=== PATIENT | male | born 1950 | race Caucasian/White ===

== ENCOUNTER 2017-03-31 06:03 | Inpatient (IN) | payer BC, MEDICARE ==
[~2017-03-31 06:03] MED LIST: Buffered Lidocaine 0.9% SYRIN* 5 ML/SYR SYRINGE INTRADERM ONE; Buffered Lidocaine 0.9% SYRIN* 5 ML/SYR SYRINGE ONE; Dexamethasone IV* 4 MG/ML 1 ML (4 MG) IV SLOW PU ONE; Dexamethasone IV* 4 MG/ML 1 ML (4 MG) ONE; Famotidine IV* 10 MG/ML 2 ML (20 mg) IV ONE; Famotidine IV* 10 MG/ML 2 ML (20 mg) ONE; ceFAZolin 2 GM PREMIX (*) 2 GM/50 ML BAG IVPB ONE
[2017-03-31] MEDS ORDERED: Morphine PF AMP (0.5MG/ML)* 5 MG/10 ML AMP ONE (07:20)
[2017-03-31] MEDS ORDERED: KETAMINE HCL* 50 MG/ML 10 ML VIAL ONE (07:20)
[2017-03-31] MEDS ORDERED: Midazolam* 1 MG/ML 5 ML VIAL (5 MG) ONE ×2 (07:20→08:59)
[2017-03-31] MEDS ORDERED: Propofol* 10 MG/ML 20 ML BTL IV PUSH ONE ×2 (07:21→11:00)
[2017-03-31] MEDS ORDERED: Ondansetron INJ* 2 MG/ML VIAL ONE (07:21)
[2017-03-31] MEDS ORDERED: Bupivacaine 0.5% SDV PF* 30 ML VIAL ONE (07:21)
[2017-03-31] MEDS ORDERED: Phenylephrine INJ* 10 MG/ML 1 ML VIAL (10 MG) ONE (07:21)
[2017-03-31] MEDS ORDERED: Nalbuphine* 20 MG/ML 1 ML VIAL IV PRN ×2 (08:57)
[2017-03-31] MEDS ORDERED: DiMENhydriNATE IV* 50 MG/ML VIAL IV PUSH PRN (08:57)
[2017-03-31] MEDS ORDERED: Ondansetron INJ* 2 MG/ML VIAL IV PRN (08:57)
[2017-03-31] MEDS ORDERED: Naloxone* 0.4 MG/ML 1 ML VIAL IV PRN (08:57)
[2017-03-31] MEDS ORDERED: oxyCODONE/Acetamin 5/325 MG* TAB PO PRN ×2 (08:57)
[2017-03-31] MEDS ORDERED: Scopolamine 1.5 mg* PATCH TRANSDERM SCH (09:00)
[2017-03-31] MEDS ORDERED: Ropivacaine* 300 MG in NS 0.9% 250 ML* 240 ML EPIDURAL SCH (10:00)
[2017-03-31] MEDS ORDERED: Bisacodyl SUPP* 10 MG SUPP PR PRN (11:30)
[2017-03-31] MEDS ORDERED: Acetaminophen TAB* 325 MG PO PRN (11:30)
--- NOTE | 2017-03-31 12:17 | RAD ---
INDICATION: Status post right TKA COMPARISON: Preoperative radiograph February 23, 2017 TECHNIQUE: 2 view radiograph of the right knee. FINDINGS: There has been interval placement of a right knee prosthesis in anatomic alignment. There is no evidence of periprostatic fracture or loosening. Surgical skin rosalina are seen overlying the anterior knee. IMPRESSION: Anatomic alignment of recently placed right knee prosthesis.
[2017-03-31] MEDS ORDERED: Nalbuphine* 20 MG/ML 1 ML VIAL ONE (12:48)
--- NOTE | 2017-03-31 15:52 | CONSULT ---
Subjective Date of Service: 03/31/17 Interval History: 67 yo M with hx of AFib with intra-atrial thrombus on coumadin, depression, JYOTI , cardiomyopathy (resolved with normalization of EF), RLS seen in PACU after R TKA. Patient has no complaints at this time, denies pain. Has stopped coumadin 5 days prior to surgery and was using Lovenox SQ. Family History: Findings - S - cervical ca Social History: Findings - Former smoked, 1/4 PPD x 15 years, quit 20 years ago , no ETOH, drug use Past Medical History: Findings - AFib, hx intra-atrial thrombus, depression, resolved cardiomyopathy, RLS, JYOTI Review of Systems - Measurements Intake and Output: Intake and Output Last 24 Hours 03/29/17 03/30/17 03/31/17 04/01/17 06:59 06:59 06:59 06:59 Intake Total 3400 Output Total 425 Balance 2975 Weight 144.061 kg Intake: IV Fluids 3400 LR 3400 Output: Doherty 425 Other: Estimated Blood Loss <200 Comment - Review of Systems Constitutional Symptoms: Negative: Weight Gain, Weight Loss Dermatology: Positive: Normal HEENT: Positive: Normal Eyes: Positive: Normal Thyroid: Positive: Normal Pulmonary: Positive: Normal Cardiology: Positive: Normal Gastroenterology: Positive: Normal Endocrinology: Positive: Normal Neurology: Positive: Normal Psychiatry: Positive: Normal Objective Active Medications: Acetaminophen (Tylenol Tab*) 650 mg PO Q4H PRN PRN Reason: PAIN OR TEMPERATURE Amiodarone HCl (Cordarone Tab*) 200 mg PO QAM [facility] Amlodipine Besylate (Norvasc Tab*) 10 mg PO QAM [facility] Bisacodyl (Dulcolax Supp*) 10 mg [place] DAILY PRN PRN Reason: constipation Dimenhydrinate (Dramamine Iv*) 25 mg IV PUSH ONCE PRN PRN Reason: NAUSEA/VOMITING Stop: 04/01/17 06:00 Diphenhydramine HCl (Benadryl Iv*) 25 mg IV Q6H PRN PRN Reason: itching or insomnia Docusate Sodium (Colace Cap*) 100 mg PO BID [facility] Enoxaparin Sodium (Lovenox(*)) 100 mg SUBCUT BID [facility] Ropivacaine 300 mg/ Sodium (Chloride) 300 mls @ 0 mls/hr EPIDURAL Q24H [facility]; Per Protocol PRN Reason: Protocol Stop: 04/01/17 06:00 Last Admin: 03/31/17 12:10 Dose: 10 mls/hr Lactated Ringer's (Lactated Ringers 1000 Ml Bag*) 1,000 mls @ 2,000 mls/hr IV ONCE PRN PRN Reason: FOR SBP < 90 Stop: 04/01/17 06:00 Cefazolin Sodium 1 gm/ Sodium (Chloride) 50 mls @ 200 mls/hr IVPB Q8H [facility] Stop: 04/01/17 08:14 Lactated Ringer's (Lactated Ringers 1000 Ml Bag*) 1,000 mls @ 100 mls/hr IV PER RATE [facility] Lactulose (Lactulose*) 30 ml PO Q6H PRN PRN Reason: constipation Morphine Sulfate (Morphine Inj (Syringe)*) 2 mg IV Q2H PRN PRN Reason: PAIN - UNCONTROLLED Multivitamins (Theragran Tab*) 1 tab PO DAILY [facility] Nalbuphine HCl (Nubain*) 5 mg IV Q6H PRN PRN Reason: NAUSEA/VOMITING Stop: 04/01/17 06:00 Nalbuphine HCl (Nubain*) 5 mg IV Q6H PRN PRN Reason: PRURITIS Stop: 04/01/17 06:00 Last Admin: 03/31/17 12:50 Dose: 5 mg Naloxone HCl (Narcan*) 0.08 mg IV Q2M PRN PRN Reason: respiratory depression Stop: 04/01/17 02:00 Ondansetron HCl (Zofran Inj*) 4 mg IV Q6H PRN PRN Reason: NAUSEA/VOMITING Stop: 04/01/17 06:00 Ondansetron HCl (Zofran Inj*) 4 mg IV Q6H PRN PRN Reason: nausea Oxybutynin Chloride (Ditropan Xl Tab*) 5 mg PO BID [facility] Oxycodone HCl (Roxycodone Tab*) 10 mg PO Q4H PRN PRN Reason: PAIN - SEVERE Oxycodone/Acetaminophen (Percocet 5/325 Tab*) 1 tab PO Q3H PRN PRN Reason: moderate pain Stop: 04/01/17 06:00 Oxycodone/Acetaminophen (Percocet 5/325 Tab*) 2 tab PO Q4H PRN PRN Reason: moderate pain Stop: 04/01/17 06:00 Oxycodone/Acetaminophen (Percocet 5/325 Tab*) 1 tab PO Q3H PRN PRN Reason: PAIN - MODERATE Oxycodone/Acetaminophen (Percocet 5/325 Tab*) 2 tab PO Q3H PRN PRN Reason: PAIN - MODERATE TO SEVERE Pharmacy Profile Note (Scopolomine Patch Remove*) 1 note PATCH OFF .AFTER 72 HOURS ONE Stop: 04/03/17 09:06 Scopolamine (Transderm-Scop 1.5 Mg Patch*) 1 patch TRANSDERM Q72H [facility] Last Admin: 03/31/17 14:31 Dose: Not Given Sertraline HCl (Zoloft*) 100 mg PO QAM [facility] Spironolactone (Aldactone Tab*) 25 mg PO QAM [facility] Warfarin Sodium (Coumadin Tab(*)) 5 mg PO ONCE@1700 ONE PRN Reason: Protocol Stop: 04/01/17 17:01 Vital Signs 03/31/17 03/31/17 03/31/17 06:07 11:30 11:35 Temperature 97.0 F 98.2 F Pulse Rate 80 72 80 Respiratory 16 18 16 Rate Blood Pressure 146/82 106/85 129/77 (mmHg) O2 Sat by Pulse 97 96 93 Oximetry 03/31/17 03/31/17 03/31/17 13:45 14:04 14:36 Temperature 97.5 F Pulse Rate 75 96 Respiratory 16 16 16 Rate Blood Pressure 115/71 100/87 (mmHg) O2 Sat by Pulse 96 97 Oximetry Oxygen Devices in Use Now: Nasal Cannula - 3L Appearance: Elderly, M, laying in bed in NAD Eyes: No Scleral Icterus Ears/Nose/Mouth/Throat: - - Dry MM Neck: NL Appearance and Movements; NL JVP Respiratory: Symmetrical Chest Expansion and Respiratory Effort, - - slight rales in B/L bases Cardiovascular: NL Sounds; No Murmurs; No JVD, - - IRIR Abdominal: NL Sounds; No Tenderness; No Distention Lymphatic: No Cervical Adenopathy Extremities: - - RLE with SITA wrap in place Skin: No Rash or Ulcers Neurological: Alert and Oriented x 3 Lines/Tubes/Other Access: Clean, Dry and Intact Doherty Assessment/Plan - Billing 67 yo M with hx of AFib, intra-atrial thrombus on coumadin, HTN, depression, JYOTI on CPAP, cardiomyopathy (resolved with normalization of EF), RLS 1) R TKA - management as per ortho - coumadin/lovenox ordered to start/resume 04/01 PM 2) AFib - AC resuming tomorrow as above - continue Amiodarone - patient also on Digoxin, will order this to resume 3) HTN - BPs soft post-op - hold home anti-HTN meds (Amlodipine, Losartan/HCTZ), unclear if patient is on Spironolactone at home 4) Depression - continue Zoloft 5) JYOTI - CPAP qhs 6) DVT PPx - SCDs for now Thank you for this consult. Will continue to follow.
[2017-03-31] MEDS: ceFAZolin 1 GM VIAL(*) 1 GM in NS 0.9% 50 ML* 50 ML IVPB SCH ×2 (15:53→23:32)
[2017-03-31] MEDS: Digoxin TAB* 0.125 MG PO SCH (17:21)
[2017-03-31] MEDS: Docusate CAP* 100 MG PO SCH (21:33)
[2017-03-31] MEDS: Oxybutynin XL TAB* 5 MG PO SCH (21:33)
[2017-04-01] MEDS ORDERED: diPHENhydraMINE IV* 50 MG/ML 1 ml VIAL (BENADRYL) IV PRN (06:00)
[2017-04-01] MEDS ORDERED: oxyCODONE TAB* 5 MG TAB PO PRN (06:00)
[2017-04-01] MEDS ORDERED: Morphine INJ* 2 MG/ML 1 ML SYRINGE (TWO MG - NEW SYRINGE VERSION) IV PRN (06:00)
[2017-04-01] MEDS ORDERED: Ondansetron INJ* 2 MG/ML VIAL IV PRN (06:00)
--- NOTE | 2017-04-01 08:16 | OP ---
DATE OF OPERATION: 03/31/17 - ROOM #333 DATE OF : 46 SURGEON: Paul Lara MD ASSISTANTS: WAI Saba; Mariam ANESTHESIOLOGIST: Silvino Buchanan MD ANESTHESIA: Epidural anesthesia, general sedation. PRE-OP DIAGNOSIS: Right knee osteoarthritis. POST-OP DIAGNOSIS: Right knee osteoarthritis. OPERATIVE PROCEDURE: Right total knee arthroplasty. ANTIBIOTICS: Ancef 3 g IV. IV FLUIDS: 3100 cc crystalloid. TOURNIQUET TIME: 136 minutes at 300 mmHg. COMPLICATIONS: None. EBL: Less than 250 cc. SPECIMEN: Bone from bone cuts. IMPLANTS: DePuy Suhail and Suhail Attune total knee arthroplasty; cruciate retaining femur size 8, right; tibial base plate, fixed bearing, size 7; patella medialized dome, 38 mm, all cemented; a tibial insert 7-mm polyethylene. Simplex P bone cement. INDICATIONS FOR PROCEDURE: The patient is a 67-year-old man with a long history of pain and osteoarthritis of the right knee, insufficiently responsive to nonoperative management over many years as detailed in my clinic note and history and physical. The patient's x-rays demonstrated [id number] medial compartment joint space narrowing as well as moderate patello-femoral and mild lateral compartment joint space narrowing and tricompartmental osteophytes. I measured 2 degrees of varus in the coronal plane at the knee. The patient has atrial fibrillation and is on chronic Coumadin anticoagulation. He is a former smoker, 2 to 3 cigarettes per day x10 years, but no recent use. His BMI is elevated, measured at his first clinic visit as 40.9. The patient opted for surgery. We discussed risks and potential complications. These include bleeding, infection, nerve or blood vessel injury, knee pain, hardware failure, knee stiffness, implant failure, blood clot. We discussed the patient's higher rate of failure of implants given his high BMI of 40.9. The patient was aware and we discussed that at both clinic visits, but the patient has had trouble losing weight because of this significant pain in his right knee. DESCRIPTION OF PROCEDURE: Preoperative written consent was obtained. Operative extremity was marked in preoperative holding. The knee was well shaved. It should be noted that the patient stopped his Coumadin anticoagulation 5 days preoperatively and was bridged with Lovenox with his final dose being 24 hours prior to surgery. This was as dictated by his building surveyor. I agreed with that regimen. The patient was brought back to the operating room and placed on the operating room table. Dr. Buchanan performed an epidural anesthetic, catheter placement. The patient was placed supine on operating room table. Well sedated. A lateral post was placed, attached to the bed. I positioned the lower extremity, so that the Ms Johnson knee positioning system would work well. I performed a range of motion check and I measured 2 to 120 degrees of flexion of the right knee. The right lower extremity was prepped with chlorhexidine to the foot and then ChloraPrep from foot to thigh. A tourniquet had been placed around the proximal thigh. The right lower extremity was then draped. The [facility] knee positioner was put into place. I then covered all the skin. A surgical time- out was performed. Esmarch was applied and the tourniquet was elevated to 300 mmHg. Anterior midline longitudinal skin incision was made from 4 fingerbreadths proximal to proximal pole of patella to the distal end of the tibial tubercle. Blades were changed. I continued my cuts through the subcutaneous tissue down to the patella. I cut subcutaneous tissue proximal with a curved Johnson scissors. With feathering strokes, I identified the patella and medial parapatellar retinaculum as well as the patella distally. I next marked my medial parapatellar arthrotomy with a marking pen. With the knee in 70 degrees of flexion, I then performed my medial parapatellar arthrotomy. I continued that down distally through the anterior horn of the medial meniscus. I extended the knee. Using Bovie electrocautery, I released capsule off of the anterior aspect of the medial tibial plateau and then the lateral tibial plateau. I performed a release medially with Bovie electrocautery followed by a quarter- inch curved osteotome. I next removed much but not all of the fat deep to the patellar tendon with a #10 blade. I removed osteophytes from the patella with a rongeur. I released soft tissue circumferentially from the patella with Bovie electrocautery. I also used a Schnitt and Bovie electrocautery to release some lateral patellofemoral ligament. The patella then nicely everted and I flexed the knee and everted the patella. I cut the ACL with a Bovie electrocautery and removed its stumps with a rongeur. I removed some osteophytes from the femur with a rongeur. There were significant osteophytes in the intercondylar notch and at the medial and lateral borders of the femur. Retractors were placed. I next drilled into the femoral canal using appropriate landmarks. I irrigated and sucked out the contents of the femoral canal. I next placed my distal femoral cutting guide. It was set to 5 degrees and 9 mm. I placed pins and then made my distal femoral cut. Removed instrumentation. I next placed my Attune distal femoral sizing guide and pinned it into place with 3 degrees of external rotation with regards to the posterior condyles. I next sized the femur to a size 8. I placed the 4-in-1 cutting block and made my anterior femoral cut. I liked its position, so I then placed my cross pins and made my posterior cut, then my anterior chamfer and my posterior chamfer cuts. Removed the instruments. I next used a file to file the central part of the anterior chamfer cut down per the Attune system. I next placed my external tibial cutting guide on the tibia. I had marked with a marking pen the mid point of the talus, the tibial crest anteriorly, and the second toe. The medial tibia had slightly more wear than the lateral tibia. Therefore, I used the medial side as my low side. I set my resection to remove 4 mm off the medial tibial plateau side. I liked the depth of this cut. I set my posterior slope to 7 degrees, which nicely matched the ambler tibial plateau. Pins were placed and a tibial cut was made. I liked the tibial cut. I next placed laminar spreaders and removed the medial and lateral meniscus. I next hyperflexed the knee and used a curved osteotome to remove osteophytes from the posterior femur. With my bony resections done, posterior osteophytes removed, and meniscus removed, I next placed my dog bone spacers. These showed equivalence of flexion and extension gaps as well as good soft tissue balancing. It seemed to me that my insert would likely be either 6 or 7 mm in size. I next placed my trial femur component, size 8 and drilled through it. I next, using the ____ technique, marked where the tibial component should be positioned on the tibia. I then removed all this instrumentation. I next placed retractors and externally rotated the tibia and sized the tibia. I first removed some osteophytes off the medial aspect of the medial tibial plateau. I sized the tibia to a 7. I next pinned the guide and then drilled and punched the tibia. Removed instruments. I extended knee. I measured the depths of the patella to be 25 mm in depth. Using eyeball technique, I removed the undersurface of the patella with an oscillating saw to a depth remaining of 14 mm. I next sized the patella to 38 mm. Through a guide, I placed 3 drill holes. I placed trial components of the femur, tibia, and patella and I liked my trial implants, I liked my bony cuts, and my soft tissue tension. At several points during the case prior, I placed a long guidewire down distally to ensure that the varus-valgus, coronal plane orientation of my tibial cut was true. Irrigation. I plugged the femoral canal with part of the bone that I removed from the anterior chamfer cut. Cement was mixed. Implants were opened. I placed the tibial implant with cement. Then, I placed the femoral implant with cement. I placed a trial 6-mm insert. I then placed the patellar implant. Cement was allowed to dry. I next trialed with a 6-mm insert and a 7-mm insert. I preferred the 7-mm insert, and so I opened the final polyethylene insert and placed it. Irrigation. No excess cement was visible. The tourniquet was next dropped. Besides 1 distal superficial clear bleeder, there was just some general ooze. Some compression and several minutes later, the oozing had stopped. Irrigation. Closure of the parapatellar arthrotomy was performed with [id number] stitches using Vicryl 0 suture. I also placed 2 stitches with an Ethibond 0 suture. Closure of the subcutaneous tissue with buried simple stitches using Vicryl 2-0 suture. Closure of the skin with rosalina. Xeroform, 4x4's, ABDs, sterile Webril. Blair bandage from foot to proximal thigh. Cooling unit applied to the knee. The patient was lightened from sedation and transferred to the PACU. DISPOSITION: The patient will be admitted postoperatively for medical management, pain control, and physical therapy. On postoperative day 1 in the morning, the patient will start physical therapy, weightbearing as tolerated for range of motion, strengthening, and walking. Anesthesia with epidural was still in place and will be removed in the evening or the morning following surgery. Pain control with oral and IV narcotics. The patient will restart Coumadin on postoperative day 1 as well as a dose of bridging Lovenox on postoperative day 1. The patient had been on Lovenox 100 mg subcu b.i.d. preoperatively and we will return him to that as a bridge. We will find out his exact Coumadin dosing most recently as it has varied in the past. He will receive Ancef 1 g q.8 hours x24 hours postoperatively. I will see the patient in the office approximately 14 days postoperatively to have a wound check, x- rays, and rosalina removed. The patient had x-rays in the PACU that showed excellent bone cuts and excellent placement of hardware. [id number]/[facility] #: [id number] [facility]ITAL[facility]arshall
[2017-04-01] MEDS: Docusate CAP* 100 MG PO SCH ×2 (08:21→20:31)
[2017-04-01] MEDS: ceFAZolin 1 GM VIAL(*) 1 GM in NS 0.9% 50 ML* 50 ML IVPB SCH (08:21)
[2017-04-01] MEDS: Vitamin THERAPEUTIC TAB PO SCH (08:21)
[2017-04-01] MEDS: Oxybutynin XL TAB* 5 MG PO SCH ×2 (08:22→20:31)
[2017-04-01] MEDS: oxyCODONE/Acetamin 5/325 MG* TAB PO PRN ×4 (08:22→20:44)
[2017-04-01] MEDS: Amiodarone TAB* 200 MG PO SCH (08:22)
[2017-04-01] MEDS: Sertraline* 100 MG TAB PO SCH (08:22)
[2017-04-01 08:36] LABS: Hematocrit 33 % (42-52); Hemoglobin 11.5 g/dl (14.0-18.0)
[2017-04-01] MEDS ORDERED: Influenza VAC *QUAD* 2017-18* 0.5 ML SYRINGE IM ONE (09:00)
[2017-04-01] MEDS ORDERED: Spironolactone TAB* 25 MG PO SCH (09:00)
[2017-04-01] MEDS ORDERED: amLODIPine TAB* 5 MG PO SCH (09:00)
[2017-04-01 09:13] LABS: BUN/Creatinine Ratio 21.2 (8-20); Calcium 8.7 mg/dL (8.6-10.3); EGFR African American 69.2 (>60); EGFR Non-African American 53.8 (>60); Potassium 4.1 mmol/L (3.5-5.0)
--- NOTE | 2017-04-01 13:28 | PN ---
Progress Note - Progress Note Date of Service: 04/01/17 SOAP: Subjective: []Patient is seen at bedside. Pain is tolerable. Working with OT in room at bedside. Denies SOB, CP, or dizziness. Objective: [] Vital Signs Temp 98.6 F 04/01/17 07:48 Pulse 82 04/01/17 07:48 Resp 16 04/01/17 12:47 BP 109/61 04/01/17 07:48 Pulse Ox 92 04/01/17 07:48 Intake & Output 03/31/17 04/01/17 04/01/17 18:59 06:59 18:59 Intake Total 3730 2816 225 Output Total 425 1425 Balance 3305 1391 225 Intake: IV Fluids 3400 1113 LR 3400 1113 IVPB 113 ABX - CEFAZOLIN 113 Oral 330 1590 225 Output: Doherty 425 1425 Other: Estimated Blood Loss <200 Comment Laboratory Results - last 24 hr 04/01/17 04/01/17 07:40 07:40 Hgb 11.5 L Hct 33 L Sodium 134 Potassium 4.1 Chloride 105 Carbon Dioxide 25 Anion Gap 4 BUN 28 H Creatinine 1.32 H Est GFR ( Amer) 69.2 Est GFR (Non-Af Amer) 53.8 BUN/Creatinine Ratio 21.2 H Glucose 128 H Calcium 8.7 right knee dressing with scant bloody drainage calf NT +DF/PF right ankle sensation and circulation intact distally Assessment: []s/p Right total knee arthroplasty POD #1 Plan: []PT/OT WBAT RLE Lovenox 100mg q12 starting tonight 5 mg Coumadin daily until INR 2-3, then d/c Lovenox
[2017-04-01] MEDS ORDERED: Warfarin TAB(*) 5 MG PO ONE ×2 (17:00)
[2017-04-01] MEDS: Digoxin TAB* 0.125 MG PO SCH (17:44)
--- NOTE | 2017-04-01 18:25 | CONSULT ---
Subjective Date of Service: 04/01/17 Interval History: s/p surgery. Pain well controlled. lovenox and coumadin starting. Pt can't remember when the LV thrombus was or what his dose of warfarin is. Family History: Findings - S - cervical ca Social History: Findings - Former smoked, 1/4 PPD x 15 years, quit 20 years ago , no ETOH, drug use Past Medical History: Findings - AFib, hx intra-atrial thrombus, depression, resolved cardiomyopathy, RLS, JYOTI Review of Systems - Measurements Intake and Output: Intake and Output Last 24 Hours 03/30/17 03/31/17 04/01/17 04/02/17 06:59 06:59 06:59 06:59 Intake Total 6546 1192 Output Total 1850 200 Balance 4696 992 Weight 144.061 kg Intake: IV Fluids 4513 742 ABX - CEFAZOLIN 55 LR 4513 687 IVPB 113 ABX - CEFAZOLIN 113 Oral 1920 450 Output: Urine 200 Doherty 1850 Other: Estimated Blood Loss <200 Comment - Review of Systems Dermatology: Positive: Normal HEENT: Positive: Normal Eyes: Positive: Normal Thyroid: Positive: Normal Pulmonary: Positive: Normal Cardiology: Positive: Normal Gastroenterology: Positive: Normal Musculoskeletal: Positive: Joint Pain Endocrinology: Positive: Normal Neurology: Positive: Normal Psychiatry: Positive: Normal Objective Active Medications: Acetaminophen (Tylenol Tab*) 650 mg PO Q4H PRN PRN Reason: PAIN OR TEMPERATURE Amiodarone HCl (Cordarone Tab*) 200 mg PO QAM [facility] Last Admin: 04/01/17 08:22 Dose: 200 mg Bisacodyl (Dulcolax Supp*) 10 mg [place] DAILY PRN PRN Reason: constipation Digoxin (Lanoxin Tab*) 0.125 mg PO 1700 [facility] Last Admin: 04/01/17 17:44 Dose: 0.125 mg Diphenhydramine HCl (Benadryl Iv*) 25 mg IV Q6H PRN PRN Reason: itching or insomnia Docusate Sodium (Colace Cap*) 100 mg PO BID [facility] Last Admin: 04/01/17 08:21 Dose: 100 mg Enoxaparin Sodium (Lovenox(*)) 100 mg SUBCUT BID [facility] Lactated Ringer's (Lactated Ringers 1000 Ml Bag*) 1,000 mls @ 100 mls/hr IV PER RATE [facility] Last Admin: 03/31/17 23:38 Dose: 100 mls/hr Lactulose (Lactulose*) 30 ml PO Q6H PRN PRN Reason: constipation Morphine Sulfate (Morphine Inj (Syringe)*) 2 mg IV Q2H PRN PRN Reason: PAIN - UNCONTROLLED Multivitamins (Theragran Tab*) 1 tab PO DAILY [facility] Last Admin: 04/01/17 08:21 Dose: 1 tab Ondansetron HCl (Zofran Inj*) 4 mg IV Q6H PRN PRN Reason: nausea Oxybutynin Chloride (Ditropan Xl Tab*) 5 mg PO BID [facility] Last Admin: 04/01/17 08:22 Dose: 5 mg Oxycodone HCl (Roxycodone Tab*) 10 mg PO Q4H PRN PRN Reason: PAIN - SEVERE Oxycodone/Acetaminophen (Percocet 5/325 Tab*) 1 tab PO Q3H PRN PRN Reason: PAIN - MODERATE Last Admin: 04/01/17 17:44 Dose: 1 tab Oxycodone/Acetaminophen (Percocet 5/325 Tab*) 2 tab PO Q3H PRN PRN Reason: PAIN - MODERATE TO SEVERE Last Admin: 04/01/17 12:47 Dose: 2 tab Pharmacy Profile Note (Scopolomine Patch Remove*) 1 note PATCH OFF .AFTER 72 HOURS ONE Stop: 04/03/17 09:06 Scopolamine (Transderm-Scop 1.5 Mg Patch*) 1 patch TRANSDERM Q72H [facility] Last Admin: 03/31/17 14:31 Dose: Not Given Sertraline HCl (Zoloft*) 100 mg PO QAM [facility] Last Admin: 04/01/17 08:22 Dose: 100 mg Vital Signs 03/31/17 03/31/17 03/31/17 19:00 19:33 19:58 Temperature 98.9 F Pulse Rate 90 Respiratory 16 18 14 Rate Blood Pressure 101/49 (mmHg) O2 Sat by Pulse 94 Oximetry 03/31/17 04/01/17 04/01/17 23:28 00:00 03:28 Temperature 99.1 F 97.3 F Pulse Rate 88 72 Respiratory 18 16 Rate Blood Pressure 120/55 100/52 (mmHg) O2 Sat by Pulse 93 93 94 Oximetry 04/01/17 04/01/17 04/01/17 04:30 05:26 05:48 Temperature Pulse Rate Respiratory 18 18 Rate Blood Pressure (mmHg) O2 Sat by Pulse 93 Oximetry 04/01/17 04/01/17 04/01/17 06:30 07:48 07:56 Temperature 98.6 F Pulse Rate 82 Respiratory 16 16 16 Rate Blood Pressure 109/61 (mmHg) O2 Sat by Pulse 92 Oximetry 04/01/17 04/01/17 04/01/17 08:22 10:22 11:33 Temperature 98.6 F Pulse Rate 92 Respiratory 16 16 17 Rate Blood Pressure 123/67 (mmHg) O2 Sat by Pulse 91 Oximetry 04/01/17 04/01/17 04/01/17 12:47 14:47 15:49 Temperature 97.7 F Pulse Rate 79 Respiratory 16 16 18 Rate Blood Pressure 128/65 (mmHg) O2 Sat by Pulse 92 Oximetry 04/01/17 17:44 Temperature Pulse Rate 72 Respiratory 16 Rate Blood Pressure (mmHg) O2 Sat by Pulse Oximetry Oxygen Devices in Use Now: Nasal Cannula - 3L Appearance: NAD Eyes: No Scleral Icterus, PERRLA Ears/Nose/Mouth/Throat: NL Teeth, Lips, Gums, Mucous Membranes Moist Neck: NL Appearance and Movements; NL JVP, Trachea Midline Respiratory: Symmetrical Chest Expansion and Respiratory Effort, Clear to Auscultation Cardiovascular: NL Sounds; No Murmurs; No JVD, RRR Abdominal: NL Sounds; No Tenderness; No Distention, No Hepatosplenomegaly Extremities: No Edema, - - right leg in splint and SITA bandage. distal sensation and strength intact Skin: No Rash or Ulcers Neurological: Alert and Oriented x 3, NL Muscle Strength and Tone Nutrition: Taking PO's Result Diagrams: 04/01/17 07:40 04/01/17 07:40 Additional Lab and Data: Laboratory Results - last 24 hr 04/01/17 04/01/17 04/01/17 07:40 07:40 15:43 Hgb 11.5 L Hct 33 L INR (Anticoag Therapy) 1.29 H Sodium 134 Potassium 4.1 Chloride 105 Carbon Dioxide 25 Anion Gap 4 BUN 28 H Creatinine 1.32 H Est GFR ( Amer) 69.2 Est GFR (Non-Af Amer) 53.8 BUN/Creatinine Ratio 21.2 H Glucose 128 H Calcium 8.7 Assessment/Plan - Billing 67 yo M with hx of AFib, intra-atrial thrombus on coumadin, HTN, depression, JYOTI on CPAP, cardiomyopathy (resolved with normalization of EF), RLS 1) R TKA - management as per ortho - coumadin/lovenox have been resumed - INR goal 2-3, then stop lovenox 2) AFib - AC resuming tomorrow as above - continue Amiodarone, Digoxin 3) HTN - BPs soft still - continue to hold home anti-HTN meds (Amlodipine, Losartan/HCTZ), unclear if patient is on Spironolactone at home 4) Depression - continue Zoloft 5) JYOTI - CPAP qhs 6) DVT PPx - lovenox, coumadin as above Thank you for this consult. Will continue to follow. Attending: Johnathon Mcintyre
[2017-04-01] MEDS: Enoxaparin(*) 100 MG/ML SYR SUBCUT SCH (20:32)
[2017-04-02] MEDS: oxyCODONE/Acetamin 5/325 MG* TAB PO PRN ×3 (05:15→17:16)
[2017-04-02 06:52] LABS: Hematocrit 31 % (42-52); Hemoglobin 10.6 g/dl (14.0-18.0)
[2017-04-02] MEDS: Enoxaparin(*) 100 MG/ML SYR SUBCUT SCH (09:15)
[2017-04-02] MEDS: Vitamin THERAPEUTIC TAB PO SCH (09:15)
[2017-04-02] MEDS: Oxybutynin XL TAB* 5 MG PO SCH (09:16)
[2017-04-02] MEDS: Docusate CAP* 100 MG PO SCH (09:16)
[2017-04-02] MEDS: Sertraline* 100 MG TAB PO SCH (09:16)
[2017-04-02] MEDS: Amiodarone TAB* 200 MG PO SCH (09:16)
--- NOTE | 2017-04-02 10:26 | PN ---
Progress Note - Progress Note Date of Service: 04/02/17 SOAP: Subjective: []Patient seen in PT, has done very well, pain minimal. He denies dizziness, SOB or CP. He feels he is ready to go home today. Objective: [] Vital Signs Temp 97.5 F 04/02/17 07:43 Pulse 90 04/02/17 07:43 Resp 18 04/02/17 09:15 BP 126/71 04/02/17 07:43 Pulse Ox 93 04/02/17 08:00 Intake & Output 04/01/17 04/02/17 04/02/17 18:59 06:59 18:59 Intake Total 1192 1100 225 Output Total 600 300 0 Balance 592 800 225 Intake: IV Fluids 742 ABX - CEFAZOLIN 55 LR 687 Oral 450 1100 225 Output: Urine 600 300 0 Other: Estimated Void Medium # Bowel Movements 0 # Voids 1 Laboratory Results - last 24 hr 04/01/17 04/02/17 15:43 06:30 Hgb 10.6 L Hct 31 L INR (Anticoag Therapy) 1.29 H Right knee dressings removed, moderate bloody drainage on dressings rosalina intact, wound benign without evidence of infection new 4x4s, ABD and SITA wraps applied calf NT and soft +DF/PF right ankle sensation and circulation intact Assessment: []s/p Right total knee arthroplasty POD #2 Plan: []PT/OT WBAT RLE Coumadin 5 mg daily with Lovenox bridge Home this afternoon Follow up with Dr. Lara in 10-14 days in office.
[2017-04-02 13:35] LABS: Hematocrit 32 % (42-52)
[2017-04-02] MEDS: Digoxin TAB* 0.125 MG PO SCH (17:16)
[2017-04-02 17:26] VITALS: BP 137/66
--- NOTE | 2017-04-03 03:08 | DS ---
DISCHARGE SUMMARY: DATE OF ADMISSION: 03/31/17 DATE OF DISCHARGE: 04/02/17 ATTENDING PHYSICIAN: Dr. Paul Lara* (dictated by WAI Prasad). ADMISSION DIAGNOSIS: Right knee osteoarthritis. DISCHARGE DIAGNOSIS: Right knee osteoarthritis. SURGERY PERFORMED: Right total knee arthroplasty. HOSPITAL COURSE: The patient is a 67-year-old male who has had a long history of pain and arthritis in the right knee. He failed conservative management with anti- inflammatories, Physical Therapy. His x-rays revealed [id number] medial compartment, space narrowing as well as patellofemoral narrowing and mild lateral compartment joint space narrowing. The patient therefore elected to proceed with surgical intervention. He was taken to the operating room under the care of Dr. Paul Lara on the date of 03/31/17. He tolerated the procedure well and left the operating room in stable condition. Postoperatively, he progressed very well with Physical Therapy and Occupational Therapy, remaining weightbearing as tolerated on the right lower extremity. He used Lovenox 100 mg subcu b.i.d. as well as Coumadin for his anticoagulation. The patient is on Coumadin regularly. It was felt that he was medically and orthopedically stable for discharge to home on the date of 04/02/17. CONDITION ON DISCHARGE: His hemoglobin is 10.6, hematocrit 31%. His INR is 1.29 on the . His vital signs are stable with a temperature of 97.5, pulse 90, respiratory rate 17, O2 sats 93% on room air, blood pressure 126/71. His right knee incision is healing without evidence of infection. His dressings were changed today with new 4x4, ABD and Blair wrap supplied. His calf is soft and nontender. His neurovascular status is intact with a 2+ pedal pulse and active dorsiflexion and plantar flexion. His sensation is intact throughout. PLAN: Discharged to home, bearing weight as tolerated on the right lower extremity. He will return to his regular Coumadin dosing, which is 5 and 6 mg alternating. He still has 2 days worth of Lovenox injections, which I instructed him to continue as his INR is not yet therapeutic. He will finish out the dosages that he has of the Lovenox and continue with his regular dosage of Coumadin. He will keep a light dressing on his knee. He may shower in 1 day. He should follow up in the office with Dr. Lara in roughly 10 to 14 days. We will have INR blood draw done on Mondays and to ensure that his INR has become therapeutic. If there is any change in his condition orthopedically that being increase pain in the knee, drainage, redness, calf pain or swelling, fever, chills, the office is to be contacted prior to a scheduled followup appointment with Dr. Lara. He was also provided with a prescription of Percocet to use for pain management , 1 to 2 tablets q.4 hours p.r.n. pain. WAI PRASAD [id number]/[facility] #: [id number] [place]
[2017-04-03] MEDS ORDERED: Scopolomine PATCH Remove* 1 NOTE MISC PATCH OFF ONE (09:05)
== END 2017-04-02 17:40 | disposition home health service (06) | DRG 302 ==
LOC: AA 06:03 → SSU 14:06
PROVIDERS: ADMIT Orthopaedic Surgery; ATTEND Orthopaedic Surgery
PROC: 0SRC0J9 Replacement of Right Knee Joint with Synthetic Substitute, Cemented, Open Approach (ICD-10-PCS; principal; 2017-03-31 07:30)
DX: M17.11 Unilateral primary osteoarthritis, right knee (principal); I42.9 Cardiomyopathy, unspecified; I48.91 Unspecified atrial fibrillation; F32.9 Major depressive disorder, single episode, unspecified; G47.33 Obstructive sleep apnea (adult) (pediatric); G25.81 Restless legs syndrome; Z68.41 Body mass index [BMI] 40.0-44.9, adult; E66.9 Obesity, unspecified; J44.9 Chronic obstructive pulmonary disease, unspecified; Z87.891 Personal history of nicotine dependence; Z80.8 Family history of malignant neoplasm of other organs or systems
CPT/HCPCS: 36415; 80048; 85014; 85018; 85610; 90686; A9270-GY; C1776; J0690; J1100; J1650; J2250; J2300; J2405; J2704; J2795